=== PATIENT | female | born 1965 | race American Indian/Alaskan Native ===

== ENCOUNTER 2019-07-26 21:55 | Emergency (ER) | payer OTHER ==
[2019-07-26 22:15] VITALS: BP 134/91
[2019-07-27] MEDS ORDERED: ACETAMINOPHEN 500 MG TAB PO ONE (02:27)
[2019-07-27] MEDS ORDERED: IBUPROFEN 600 MG TAB PO ONE (02:27)
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
== END 2019-07-27 05:18 | disposition home or self-care (01) ==
LOC: ED 21:55
DX: M62.830 Muscle spasm of back (principal); G89.29 Other chronic pain; V89.2XXA Person injured in unspecified motor-vehicle accident, traffic, initial encounter; Y93.89 Activity, other specified; Y92.410 Unspecified street and highway as the place of occurrence of the external cause; Y99.8 Other external cause status
CPT/HCPCS: 72100